=== PATIENT | female | born 1985 | race Caucasian/White ===

== ENCOUNTER 2019-07-15 15:11 | Emergency (ER) | payer BC ==
[~2019-07-15] VITALS: Ht 175.3 cm; Wt 104.5 kg
[2019-07-15 15:15] VITALS: TEMP 98.4
[2019-07-15 16:11] LABS: BASO % 0.3 % (0.0-2.0); EOS % 0.1 % (0-4.0); GRAN # 9.6 (1.4-6.5); GRAN % 82.9 % (42.2-75.2); HEMATOCRIT 45.1 % (37.0-47.0); HEMOGLOBIN 15.6 g/dl (12.5-16.0); LYMPH # 1.3 (1.2-3.4); LYMPH % 11.4 % (20.0-51.0); MEAN CELL VOLUME 86 fl (80.0-100.0); MEAN CORPUSCULAR HEMOGLOBIN 30 pg (27.0-31.0); MEAN CORPUSCULAR HGB CONC 35 g/dl (33.0-37.0); MEAN PLATELET VOLUME 10.7 fl (7.4-10.4); MONO # 0.5 (0.1-0.6); MONO % 4.7 % (1.7-9.3); PLATELET COUNT 256 K/mm3 (130-400); RED BLOOD COUNT 5.23 M/mm3 (4.10-5.30)
[2019-07-15 16:25] LABS: ALBUMIN 4.5 gm/dL (3.5-5.0); BILIRUBIN,TOTAL 0.9 mg/dL (0.0-1.0); CALCIUM 9.3 mg/dL (8.4-10.2); CREATININE, serum 0.6 (0.52-1.25); TOTAL PROTEIN 7.6 gm/dL (6.4-8.2)
[2019-07-15 17:53] LABS: COLLECTION METHOD CLEAN CATCH
[2019-07-15 18:04] LABS: PH 5 (5-8); SQUAMOUS EPITHELIAL 0-2 /hpf; URINE APPEARANCE Clear; URINE BACTERIA Rare /hpf; URINE BILIRUBIN Negative (NEGATIVE); URINE BLOOD Negative (NEGATIVE); URINE COLOR Yellow; URINE GLUCOSE 3+ (NEGATIVE); URINE KETONE 1+ (NEGATIVE); URINE LEUKOCYTE ESTERASE 1+ (NEGATIVE); URINE NITRATE Negative (NEGATIVE); URINE PROTEIN(semi-quant) Negative (NEGATIVE); URINE UROBILINOGEN Negative (NEGATIVE)
[2019-07-15] MEDS ORDERED: METAGLIP 2.5 MG1 TA1 PO (18:15)
[2019-07-15] MEDS ORDERED: LANCETS MC (18:16)
[2019-07-15] MEDS ORDERED: GLUCOSE TEST ST1 DEV MC (18:16)
[2019-07-15] MEDS ORDERED: FREESTYLE PREC1 EAC5 MC (18:16)
[2019-07-15 18:26] VITALS: BP 118/71; PULSE 105
--- NOTE | 2019-07-16 09:15 | NUR ---
[employer] student received a social work nurse consult for the patient due to new Type II DM diagnosis and needing to be set up with diabetes education, PCP, and support services. The patient discharged the evening of 07/15. Nonetheless, [employer] student attempted to contact the patient , left message.
== END 2019-07-15 18:35 | disposition home or self-care (01) ==
LOC: COL.ER 15:11
PROVIDERS: Emergency Medicine
DX: E11.65 Type 2 diabetes mellitus with hyperglycemia (principal); R00.0 Tachycardia, unspecified
CPT/HCPCS: J7030